=== PATIENT | male | born 1995 | race Caucasian/White ===

== ENCOUNTER 2017-11-30 02:28 | Emergency (ER) | payer SELFPAY ==
[~2017-11-30] VITALS: Ht 172.7 cm; Wt 93.0 kg
[2017-11-30 02:33] VITALS: BP 150/93
== END 2017-11-30 02:46 | disposition home or self-care (01) ==
LOC: ED 02:35
DX: K08.89 Other specified disorders of teeth and supporting structures (principal); F17.210 Nicotine dependence, cigarettes, uncomplicated
CPT/HCPCS: 99283

== ENCOUNTER 2018-02-07 05:02 | Emergency (ER) | payer SELFPAY ==
[~2018-02-07] VITALS: Ht 180.3 cm; Wt 101.2 kg
[2018-02-07 05:09] VITALS: BP 123/88
== END 2018-02-07 06:52 | disposition home or self-care (01) ==
LOC: ED 05:40
DX: S20.211A Contusion of right front wall of thorax, initial encounter (principal); X58.XXXA Exposure to other specified factors, initial encounter; Y93.89 Activity, other specified; Y92.009 Unspecified place in unspecified non-institutional (private) residence as the place of occurrence of the external cause; Y99.8 Other external cause status
CPT/HCPCS: 71046; 99284

== ENCOUNTER 2019-09-06 10:45 | Emergency (ER) | payer SELFPAY ==
[~2019-09-06] VITALS: Ht 177.8 cm; Wt 100.0 kg
[2019-09-06 10:47] VITALS: BP 150/88
[2019-09-06] MEDS ORDERED: IBUPROFEN 200 MG TABLET PO ONE (11:00)
[2019-09-06] MEDS ORDERED: IBUPROFEN 200 MG TABLET ONE (11:49)
== END 2019-09-06 11:57 | disposition home or self-care (01) ==
LOC: ED 11:06
DX: S93.492A Sprain of other ligament of left ankle, initial encounter (principal); F17.210 Nicotine dependence, cigarettes, uncomplicated; X58.XXXA Exposure to other specified factors, initial encounter; Y93.89 Activity, other specified; Y92.098 Other place in other non-institutional residence as the place of occurrence of the external cause; Y99.8 Other external cause status
CPT/HCPCS: 99283